=== PATIENT | female | born 1975 | race Caucasian/White ===

== ENCOUNTER 2016-09-17 12:55 | Day surgery (SDC) | payer BC ==
[~2016-09-17] VITALS: Ht 162.6 cm; Wt 115.2 kg
[~2016-09-17 12:55] MED LIST: IMPLANON68 MG ID; NO HOME MEDICATIONS
[2016-09-17 13:32] VITALS: BP 144/89; PULSE 75; TEMP 99.6
[2016-09-17] MEDS ORDERED: CARAFATE 1GM1 G PO (13:37)
[2016-09-17] MEDS ORDERED: CELEXA 20MG20 MG/TAB PO (13:37)
[2016-09-17] MEDS ORDERED: ZANTAC 150MG T150 MG PO (13:38)
[2016-09-17] MEDS ORDERED: PAZEO2.5 ML OP (13:39)
[2016-09-17] MEDS ORDERED: DEPO-PROVE150 MG/1 M IM (13:44)
[2016-09-17 14:40] VITALS: BP 119/77; PULSE 80; TEMP 98.4
[2016-09-17] MEDS ORDERED: PROTONIX 40MG T40 MG PO (14:51)
[2016-09-17 14:55] VITALS: BP 110/73; PULSE 60
[2016-09-17 15:15] VITALS: BP 108/68; PULSE 66
[2016-09-17 16:52] VITALS: BP 117/73; PULSE 89
== END 2016-09-17 15:45 | disposition home or self-care (01) ==
LOC: SDCO 12:55
DX: K21.0 Gastro-esophageal reflux disease with esophagitis (principal); R19.7 Diarrhea, unspecified; K44.9 Diaphragmatic hernia without obstruction or gangrene; E66.01 Morbid (severe) obesity due to excess calories
CPT/HCPCS: OP; J2250; J3010; J7030

== ENCOUNTER → 2020-08-06 | Outpatient (CLI) | payer BC ==
[~2020-08-06] MED LIST changes: +CARAFATE 1GM1 G PO; +CELEXA 20MG20 MG/TAB PO; +DEPO-PROVE150 MG/1 M IM; +PAZEO2.5 ML OP; +PROTONIX 40MG T40 MG PO; +ZANTAC 150MG T150 MG PO
== END ==
LOC: MC.RAD 07:59
DX: Z12.31 Encounter for screening mammogram for malignant neoplasm of breast (principal)

== ENCOUNTER → 2021-06-02 | Outpatient (CLI) | payer OTHER | LOC: MHCPAIN 13:07 | DX: M47.812 Spondylosis without myelopathy or radiculopathy, cervical region (principal); M54.2 Cervicalgia; G89.29 Other chronic pain | CPT/HCPCS: G0463 ==

== ENCOUNTER → 2021-12-02 | Outpatient (CLI) | payer OTHER | LOC: COL.RAD 07:01 | DX: K76.0 Fatty (change of) liver, not elsewhere classified (principal) ==

== ENCOUNTER → 2023-02-22 | Outpatient (CLI) | payer OTHER | LOC: CANSCHCLI → MC.RAD 09:45 | DX: Z12.31 Encounter for screening mammogram for malignant neoplasm of breast (principal) ==